=== PATIENT | female | born 1980 | race Caucasian/White ===

== ENCOUNTER 2019-04-28 06:48 | Inpatient (IN) | payer OTHER ==
[~2019-04-28] VITALS: Ht 162.6 cm; Wt 89.1 kg
--- NOTE | ~2019-04-28 | HEMODYNAMI ---
PATIENT:FRANCICSA CHARLES MEDICAL RECORD: [id number] : 84 LOCATION:[facility] D.2115 ADMISSION DATE: 04/28/19 Generatedon:04/29/20199:53 Patient name: FRANCISCA CHARLES Patient #: [id number] SSN: [id number] : 1980 Date of study: 04/29/2019 Page: Of Hemodynamic Procedure Report Patient Data Patient Demographics Procedure consent was obtained First Name: FRANCISCA Gender: Female Last Name: ARACELI : 1980 Patient #: [id number] Age: 38 year(s) Race: SSN: [id number] Additional ID: [id number] Contact details Address: [address] [place] [address] [address] State: [place] City: [facility] Zip code: [address] Past Medical History Allergies: No known allergies Admission Admission Data Admission Date: 04/28/2019 Admission Time: 16:25 Arrival Date: 04/28/2019 Arrival Time: 0:00 Room #: D.2115 Weight (lbs.): 186 Weight (kg.): 84.37 Lab Results Lab Result Date: 04/29/2019 Lab Result Time: 1:00 CBC Name Units Result Min Max Hematocrit % 36.3 *-(----)-- 42 54 Hemoglobin g/dl 11.8 *-(----)-- 13.5 17.5 Procedure Procedure Types Cath Procedure Diagnostic Procedure [facility] w/Coronaries Procedure Description Procedure Date Procedure Date: 04/29/2019 Procedure Start Time: 9:41 Procedure End Time: 9:49 Procedure Staff Name Function Guido Means MD Performing Physician Jaky Obando RT Monitor Janet Javier RT Scrub Lorri Morgan RN Nurse Procedure Data Cath Procedure Fluoroscopy Diagnostic fluoroscopy Total fluoroscopy Time: 2 time: 2 min min Diagnostic fluoroscopy Total fluoroscopy dose: 382 dose: 382 mGy mGy Contrast Material Contrast Material Type Amount (ml) Isovue 300 63 Entry Location Entry Primary Successful Side Size Upsize Upsize Entry Closure Weiss ccessful Closure Location (Fr) 1 (Fr) 2 (Fr) Remarks Device Remarks Radial Right 5 Fr Mechanical artery Compression Estimated blood loss: 5 ml Diagnostic catheters Device Type Used For End Catheter Placement DIAGNOSTIC Everson 110cm 5 Procedure Fr catheter ([id number]) Procedure Complications No complications Procedure Medications Medication Administration Route Dosage Oxygen etCO2 Nasal cannula 2 l/min Lidocaine 2% added to field 20 Heparin Flush Bag added to field 2 bags (1000units/500ml NS) 0.9% NaCl I.V. 100 ml/hr Radial Cocktail I.A. 1 syringe (Verapamil 2mg/Nitro 400mcg/Heparin 1500units) Versed I.V. 2 mg Fentanyl I.V. 100 mcg Versed I.V. 2 mg Fentanyl I.V. 100 mcg Hemodynamics Rest HGB: 11.8 (g/dl) Heart Rate: 57 (bpm) Snapshots Pre Cath Intra NCS Post Cath Vital Signs Time Heart Resp SPO2 etCO2 NIBP Rhythm Pain Sedation Rate (ipm) (%) (mmHg) (mmHg) Status Level (bpm) 9:19:11 67 15 99 39 127/75(91) NSR 0 (11) 10(A) , No pain 9:23:23 58 13 98 42.1 129/67(86) NSR 0 (11) 10(A) , No pain 9:27:39 57 12 98 42.1 116/61(83) NSR 0 (11) 10(A) , No pain 9:31:59 55 11 98 42.8 116/52(85) NSR 0 (11) 10(A) , No pain 9:36:58 53 11 97 40.5 115/62(81) NSR 0 (11) 10(A) , No pain 9:41:14 54 12 97 21.8 110/54(75) NSR 0 (11) 10(A) , No pain 9:45:26 76 13 94 44.3 100/47(74) NSR 0 (11) 9(A) , No pain 9:49:40 70 12 96 47.3 110/52(75) NSR 0 (11) 10(A) , No pain Medications Time Medication Route Dose Verified Delivered Reason Notes Effectiveness by by 9:18:15 Oxygen etCO2 2 l/min Guido Blackmon used for Nasal Tauth MD Morgan school janitor cannula 9:18:22 Lidocaine 2% added 20ml Guido Lora for local to vial Miguelangel Means MD anesthetic field 9:18:30 Heparin Flush added 2 bags Guido Lora used for Bag to Miguelangel Means MD procedure (1000units/500ml field NS) 9:18:42 0.9% NaCl I.V. 100 Guido Blackmon Per ml/hr Miguelangel Morgan RN physician 9:41:47 Versed I.V. 2 mg Guido Blackmon for sedation Miguelangel Morgan RN 9:41:53 Fentanyl I.V. 100 mcg Guido Blackmon for sedation Miguelangel Morgan RN 9:42:36 Radial Cocktail I.A. 1 Guido Lora for (Verapamil syringe Miguelangel Means MD vasodilation 2mg/Nitro 400mcg/Heparin 1500units) 9:45:38 Versed I.V. 2 mg Guido Blackmon for sedation Miguelangel Morgan RN 9:45:42 Fentanyl I.V. 100 mcg Guido Blackmon for sedation Miguelangel Morgan RN Procedure Log Time Note 8:59:22 Informed consent obtained and on chart 8:59:48 Procedure Status Urgent Heart Cath (IP). 8:59:49 Signed procedure consent form obtained from patient. 8:59:51 Time tracking: Regular hours (M-F 7:00 - 5:00) 8:59:54 Plan of Care:Hemodynamics will remain stable., Cardiac rhythm will remain stable., Comfort level will be maintained., Respiratory function will remain adequate., Patient/ family verbilizes understanding of procedure., Procedure tolerated without complication., Recovers from procedure without complications.. 9:00:04 Lorri Morgan RN sent for patient. Start room use. 9:00:47 Patient allergic to No known allergies 9:01:20 Lab Result : BUN 15 mg/dl 9:01:20 Lab Result : Creatinine 0.7 mg/dl 9:01:20 Lab Result : eGFR NONAFRICAN 90 ml/min 9:12:27 Patient received from Med II to CCL 1 Alert and oriented. Tansferred to table in Supine position. 9:12:28 Warm blankets applied, and edilson hugger turned on for patient comfort. 9:12:29 Correct patient and procedure confirmed by team. 9:12:29 ECG and BP/O2 sat monitors applied to patient. 9:18:04 Vital chart was started 9:18:15 Oxygen 2 l/min etCO2 Nasal cannula was administered by Lorri Morgan RN; used for procedure; Verbal order read back and verified. 9:18:22 Lidocaine 2% 20ml vial added to field was administered by Guido Means MD; for local anesthetic; Verbal order read back and verified. 9:18:30 Heparin Flush Bag (1000units/500ml NS) 2 bags added to field was administered by Guido Means MD; used for procedure; Verbal order read back and verified. 9:18:42 0.9% NaCl 100 ml/hr I.V. was administered by Lorri Morgan RN; Per physician; Verbal order read back and verified. 9:20:07 Baseline sample Acquired. 9:20:12 Rhythm: sinus bradycardia 9:20:14 Full Disclosure recording started 9:20:15 Pre-procedure instructions explained to patient. 9:20:16 Pre-op teaching completed and patient verbalized understanding. 9:20:17 Family in patients room. 9:20:19 Patient NPO since Midnight. 9:20:22 Is patient on blood thinner?Yes 9:20:31 PRE LOADED ON PLAVIX. 9:20:33 Patient diabetic? No. 9:20:35 Patient not . Patient has had tubal. 9:20:42 Previous problem with sedation/anesthesia? No ? 9:20:43 Snore? Yes 9:20:44 Sleep apnea? No 9:20:46 Deviated septum? No 9:20:47 Opens mouth fully? Yes 9:20:48 Sticks out tongue? Yes 9:20:50 Airway obstruction? No ? 9:20:51 Dentures? No ? 9:20:55 Modified Randy's test Ulnar < 7 seconds 9:20:57 Patient pain scale 0/10 ?. 9:21:02 IV patent on arrival in right antecubital with 0.9% NaCl at [facility]. 9:21:05 Lab results completed and on chart. 9:21:09 Right Radial & Right Groin area was prepped with chlora-prep and draped in sterile fashion 9:21:10 Alarms reviewed by R. N. 9:21:11 Sharps counted by scrub and verified by R.N. 9:21:16 Use device set Radial Dx or PCI 9:21:17 ACIST Syringe (34129) opened to sterile field. 9:21:18 Bag Decanter (2001S) opened to sterile field. 9:21:18 ACIST Hand Control (79818) opened to sterile field. 9:21:19 ACIST Manifold (27972) opened to sterile field. 9:21:20 Tegaderm 4 x 4 (1626W) opened to sterile field. 9:21:21 Medline Cath Pack ([id number]) opened to sterile field. 9:21:21 MBrace Wrist Support ([id number]) opened to sterile field. 9:21:23 EMERALD Guide Wire (502-506) opened to sterile field. 9:21:24 SHEATH 6FR RAIN (7153617) opened to sterile field. 9:24:04 Patient Weight : 186 lbs 9:24:17 Arrival Date: 04/28/2019 12:00:00 AM 9:25:17 Lab Result : Hemoglobin 11.8 g/dl 9:25:17 Lab Result : Hematocrit 36.3 % 9:30:02 Zero performed for pressure channel P1 9:40:37 --------ALL STOP TIME OUT------ 9:40:37 Final Timeout: patient, procedure, and site verified with staff and physician. All members of the team are in agreement. 9:40:40 Right Radial & Right Groin site verified by team. 9:40:43 Fire Safety Assessment: A--An alcohol-based skin anteseptic being used preoperatively., C--Open oxygen or nitrous oxide is being used., D--An ESU, laser, or fiber-optic light is being used. 9:40:45 Physical assessment completed. ASA score P 2 - A patient with mild systemic disease as per Guido Means MD. 9:40:47 1) 90+ Normal kidney functon but urine findings or structural abnormalities or genetic trait point to kidney disease. 9:40:50 Maximum allowable contrast dose (3.7 X eGFR X 0.75)250 ml. 9:40:53 Sedation plan: IV Moderate Sedation Medication:Versed, Fentanyl 9:41:14 Procedure started. 9:41:47 Versed 2 mg I.V. was administered by Lorri Morgan RN; for sedation; Verbal order read back and verified. 9:41:53 Fentanyl 100 mcg I.V. was administered by Lorri Morgan RN; for sedation; Verbal order read back and verified. 9:41:54 Local anesthetic to right radial artery with Lidocaine 2% by Guido Means MD.INITIAL ACCESS ONLY 9:42:08 A 5 Fr sheath was inserted into the Right Radial artery 9:42:36 Radial Cocktail (Verapamil 2mg/Nitro 400mcg/Heparin 1500units) 1 syringe I.A. was administered by Guido Means MD; for vasodilation; Verbal order read back and verified. 9:42:39 A DIAGNOSTIC Everson 110cm 5 Fr catheter (079122) was advanced over the wire and used for Procedure. 9:43:38 LV gram done using LAY 9::44 Injector settings: Ml/sec: 5, Volume: 15, 9:44:03 EF : 60 % 9:45:38 Versed 2 mg I.V. was administered by Lorri Morgan RN; for sedation; Verbal order read back and verified. 9:45:42 Fentanyl 100 mcg I.V. was administered by Lorri Morgan RN; for sedation; Verbal order read back and verified. 9:46:11 LCA angiography performed. 9:46:12 RCA angiography performed. 9:46:29 Catheter removed. 9:46:37 Procedure ended.(Physican Out) 9:46:47 ZEPHYR REGULAR TR BAND (496157) opened to sterile field. 9:46:54 Fluoroscopy time 02.00 minutes. 9:46:59 Fluoroscopy dose: 382 mGy 9:46:59 Flurop Dose total: 382 9:47:06 Dose Area Product 60033 mGy/cm. 9:47:10 Contrast amount:Isovue 300 63ml. 9:47:14 Maximum allowable dose exceeded? No. 9:48:07 Sheath removed intact; hemostasis achieved with Mechanical Compression to the Right Radial artery. 9:48:12 [place] band inflated with 10cc of air. 9:48:22 Post-procedure physical assessment completed. ASA score P 2 - A patient with mild systemic disease as per Guido Means MD. 9:48:26 Post procedure rhythm: sinus rhythm 9:48:28 Estimated blood loss: 5 ml 9:48:29 Post procedure instruction explained to patient.Patient verbalizes understanding. 9:48:29 Patient needs reinforcement of post procedure teaching. 9:49:03 Procedure and supply charges have been captured, reviewed, submitted and are correct. 9:49:07 Procedure Complication : No complications 9:49:09 Vital chart was stopped 9:49:09 See physician's report for complete and final results. 9:49:14 Report given to [facility]. 9:49:18 Patient transfered to [facility] with Bed. 9:49:19 Procedure ended. 9:49:19 Full Disclosure recording stopped 9:49:24 End room use (Document Last) 9:52:51 End room use (Document Last) 9:53:25 End room use (Document Last) Device Usage Item Name Manufacture Quantity Catalog Hospital Part Current Minima l Lot# / Number Charge Number Stock Stock Serial# Code ACIST Acist 1 33188 [id number] 518997 [id number] 20 Syringe Medical (00571) Systems Inc Bag Microtek 1 2001S 597660 24265 864047 5 Decanter Medical Inc. (2001S) ACIST Hand Acist 1 28022 812278 929260 465319 5 Control Medical (87651) Systems Inc ACIST Acist 1 85409 536416 243725 149363 5 Manifold Medical (09717) Systems Inc Tegaderm 4 3M 1 1626W 762855 881203 558097 5 x 4 (1626W) Medline Medline 1 [id number] 234606 39076 643020 5 Cath Pack (OILP17938) MBrace Advanced 1 140-0250-00 060252 95780 412546 5 Wrist Vascular Support Dynamics (224679076) EMERALD Cardinal 1 502-455 295790 094034 842826 5 Guide Wire Health (502-455) SHEATH 6FR Cardinal [address] 7267[address] 657221 9984329 113[address] [facility] Health (7468335) DIAGNOSTIC Terumo 1 40-5013 818204 048457 420439 5 Everson 110cm 5 Fr catheter (527842) ZEPHYR Cardinal 1 130747 121743 3873533 182194 5 REGULAR TR Health BAND (296050) Signature Audit Concan Stage Time Signature Unsigned Intra-Procedure 04/29/2019 Jaky Obando 9:52:51 AM RT(R) Intra-Procedure 04/29/2019 Lorri Morgan RN 9:53:25 AM Intra-Procedure 04/29/2019 Guido Means 9:53:43 AM [place] [id number] [place] [id number]
[2019-04-28 07:13] LABS: BASOPHILS 0.3 % (0-2); EOSINOPHILS 3.3 % (0-7); HEMATOCRIT 36.3 % (36.0-48.0); HEMOGLOBIN 11.8 g/dL (12-16); LYMPHOCYTES 27.5 % (15-50); MCH 29.5 pg (26.0-34.0); MCHC 32.5 g/dL (31.0-37.0); MCV 90.8 fL (80.0-100.0); MEAN PLATELET VOLUME 8.8 fL (7.4-10.4); MONOCYTES 9.7 % (2-11); NEUTROPHILS 59.2 % (40-80); PLATELET COUNT 266 10x3/uL (130-400); RDW 12.8 % (11.5-14.5); WBC 7.9 10x3/uL (4.8-10.8)
[2019-04-28 07:28] LABS: HCG SERUM NEGATIVE (NEGATIVE)
[2019-04-28 07:29] LABS: ALBUMIN 3.4 g/dL (3.4-5.0); ALKALINE PHOSPHATASE 83 U/L (46-116); ALT (SGPT) 17 U/L (10-68); BILIRUBIN - TOTAL 0.39 mg/dL (0.2-1.3); CALC OSMOLALITY 285 mosm/kg (275-300); CALCIUM 8.2 mg/dL (8.5-10.1); CARBON DIOXIDE 26.1 mmol/L (21.0-32.0); CHLORIDE - SERUM 108 mmol/L (98-107); CREATININE - SERUM 0.7 mg/dL (0.6-1.3); GLUCOSE 98 mg/dL (74-106); PROTEIN - SERUM 6.3 g/dL (6.4-8.2); SODIUM 143 mmol/L (136-145); UREA NITROGEN 15 mg/dL (7-18); eGFR NON AFRICAN AMERICAN > 90 mL/min (90-120)
[2019-04-28 07:45] LABS: CREATINE KINASE 89 UL (21-215)
[2019-04-28 07:52] LABS: TROPONIN-I 0.159 ng/mL (0.000-0.060)
--- NOTE | 2019-04-28 07:52 | NUR ---
0.159 ELEVATED TROPONIN CALLED BY [employer] AT THIS TIME. REPORTED TO DR. MACDONALD.
[2019-04-28 08:05] VITALS: BP 124/61
--- NOTE | 2019-04-28 08:31 | NUR ---
PATIENT AWAKE AND ALERT; DENIES PAIN AT THIS TIME; SPOUSE AT BEDSIDE; UPDATED ON NPO AT THIS TIME, PLAN OF CARE AND DELAYS IN CARE; WILL CONTINUE TO MONTIOR. NO OTHER NEEDS NOTED.
[2019-04-28 08:32] VITALS: BP 100/53
--- NOTE | 2019-04-28 09:15 | NUR ---
PATIENT C/O CHEST PAIN AND IS UPSET AFTER RECEIVING INFORMATION ON HER CONDITION FROM PROVIDER; TALKED TO PATIENT AND SHE CALMED DOWN. REPEATED AN EKG DUE TO CHEST PAIN. AFTER SHE CALMED DOWN AND RELAXED SHE IS NO LONGER C/O OF CP.
[2019-04-28 10:27] VITALS: BP 120/62
--- NOTE | 2019-04-28 10:36 | NUR ---
UNABLE TO TRANSPORT PT TO ROOM AT THIS TIME DUE TO HAVING A ECHOCARDIOGRAM IN HER ROOM AT THIS TIME. WILL TRANSPORT WHEN COMPLETE.
--- NOTE | 2019-04-28 10:53 | NUR ---
PATIENT TRANSPORTED TO ROOM
--- NOTE | 2019-04-28 10:57 | NUR ---
TRANSFER FROM ER BY W/C. FRANKINTED TO ROOM. CALL LIGHT IN REACH. WILL CONT. PLAN OF CARE.
[2019-04-28 11:09] VITALS: BP 100/53; Ht 162.6 cm; Wt 89.1 kg
--- NOTE | 2019-04-28 11:55 | NUR ---
CONSENTS SIGNED FOR [facility]. WILL CONT. PLAN OF CARE.
--- NOTE | 2019-04-28 16:38 | MORECARE ---
CASE MANAGEMENT DISCHARGE SUMMARY PATIENT: FRANCISCA CHARLES UNIT: [id number] ADM DATE: 04/28/19 AGE: 38 : [birth year] SEX: F ROOM/BED: D.8917 AUTHOR: RUBIA,DOC PHYSICIAN: REFERRING PHYSICIAN: PIPPA SOLOMON MD DATE OF SERVICE: 04/28/19 Discharge Plan Patient Name: FRANCISCA CHARLES Facility: [facility]:[place] : 1980 Planned Disposition: Home Anticipated Discharge Date: 04/29/19 Discharge Date: Expected LOS: 1 Initial Reviewer: [email or web address] Initial Review Date: 04/28/2019 Generated: 04/28/19 5:37 pm DCP- Discharge Planning Updated by [email or web address]: Ruth Stephen on 04/28/19 3:[address] DC PLAN: Return home independently with her . ANTICIPATED DC NEEDS: Denied known dc needs. CM met with patient to complete initial dc planning assessment. CM educated patient on the CM role and verbal consent given by patient to complete assessment. CM verified patient's address, phone number, and emergency contact phone numbers. Patient lives at home with her independently. At discharge patient plans to return home and feels this is a safe discharge. CM discussed availability of home health, rehab services, and medical equipment. Patient denied known discharge needs at this time. Patient reports her will transport her home at time of discharge. CM will continue to follow and will assist as needed with dc plans/needs. Ruth Stephen RN, [facility] DCPIA - Discharge Planning Initial Assessment Updated by [email or web address]: Ruth Stephen on 04/28/19 4:30 pm * Is the patient Alert and Oriented? Yes * PCP Dr. Bailey Holm in [place] * Pharmacy [facility] in [facility] * Preadmission Environment Home with Family * ADLs Independent * Equipment None * List name and contact numbers for known caregivers / representatives who currently or will assist patient after discharge: Krzysztof Charles - - [phone] * Verbal permission to speak to the caregivers and representatives has been obtained from the patient. Yes * Community resources currently utilized None * Additional services required to return to the preadmission environment? No * Can the patient safely return to the preadmission environment? Yes * Has this patient been hospitalized within the prior 30 days at any hospital? No Patient Name: FRANCISCA CHARLES Page 43527 at 1638 All edits/amendments must be made on the electronic document DICTATION DATE: 04/28/191636 HEATING AND VENTILATING DRAFTER: ML 04/28/191636 RPT#: [id number] DC DATE: STATUS: ADM IN [facility] [address] [place] [address] END OF REPORT
[2019-04-28 16:45] VITALS: BP 116/61
[2019-04-28 20:00] VITALS: BP 112/58
--- NOTE | 2019-04-28 20:00 | NUR ---
INITIAL ROUNDS AND ASSESSMENT COMPLETED. PT RESTING IN BED. ANXIOUSNESS NOTED ON FACE. REVIEWED PLAN OF CARE AND PATIENT TEACHING ON NPO AFTER MIDNIGHT. ENCOURAGED QUESTIONS/PROVIDED ANSWERS. PT CALMER AFTER INTERACTION.
--- NOTE | 2019-04-28 21:46 | NUR ---
VISITOR AT BEDSIDE. PROVIDED SANDWICH TRAY AND DRINK AT THIS TIME.
[2019-04-29] VITALS: BP 114/64
[2019-04-29 04:30] VITALS: BP 101/41
[2019-04-29 08:08] VITALS: BP 112/65
--- NOTE | 2019-04-29 09:02 | NUR ---
PRE-OP MEDS GIVEN AT THIS TIME. ALSO GAVE AM MEDS WITH A SIP OF WATER. PT TO CURBSTONE SETTER VIA BED, NAD NOTED.
--- NOTE | 2019-04-29 10:15 | NUR ---
RECEIVED PT BACK TO ROOM 2114, PT A LITTLE DROWSY BUT EASILY AROUSES TO VOICE. VITAL SIGNS STABLE, PLACED PT ON FREQUENT VITAL SIGNS. TR BAND NOTED TO RT WRIST, DRESSING WITH SMALL AMOUNT OF BLOOD. PT DENIES ANY NEEDS AT THIS TIME. CALL LIGHT IN REACH, FAMILY AT BEDSIDE, NAD NOTED,W ILL CONTINUE TO MONITOR.
--- NOTE | 2019-04-29 11:25 | NUR ---
NO CHANGES TO RT WRIST FROM PREVIOUS ASSESSMENT. PT RESTING COMFORTABLY IN BED, AT BEDSIDE, NAD NOTED,WILL CONTINUE TO MONITOR.
[2019-04-29 11:47] LABS: CREATINE KINASE 69 UL (21-215); UREA NITROGEN 12 mg/dL (7-18)
[2019-04-29 11:54] VITALS: BP 99/47
--- NOTE | 2019-04-29 14:34 | HP ---
PATIENT: FRANCISCA UMANA MEDICAL RECORD: [id number] ACCOUNT: [id number] LOCATION:[address] : 84 ADMISSION DATE: 04/28/19 PCP: No PCP HISTORY AND PHYSICAL EXAMINATION DIAGNOSES: 1. Non-Q-wave myocardial infarction. 2. Family history of coronary artery disease. HISTORY OF PRESENT ILLNESS: Mrs. Umana has a weak family history of coronary artery disease. Her father had a myocardial infarction a few years ago. She was awoken with chest pain and her enzymes are positive for a non-Q-wave myocardial infarction. She is pain free at this time. She did have over an hour of chest pain. Presented to [facility], was transferred here. Her EKG is with no significant ST-T abnormalities. PHYSICAL EXAMINATION: CONSTITUTIONAL/GENERAL APPEARANCE: Well nourished, well developed, appears stated age. EYES: Lids and conjunctivae noninjected. No discharge. No pallor. ENT: Lips within normal limit. No cyanosis. No pallor. NECK: Carotid arteries, bilateral normal upstroke. No bruits. No thrills. No jugular venous pressure or distention. CERVICAL LYMPH NODES: Nontender. Nonenlarged. THYROID: Not enlarged. No nodules. CARDIOVASCULAR: Precordial exam, nondisplaced. No heaves or pericardial thrills. Rate and rhythm, regular. Heart sounds, normal S1, normal S2. No S3, no gallop, no rub. Systolic murmur, not heard. Diastolic murmur, not heard. RESPIRATORY: Respiratory effort, unlabored. Normal curvature. No thoracic deformity. No chest wall tenderness. Percussion, resonant. Auscultation, clear. No wheezes, no rales, no rhonchi. ABDOMEN: Soft, nondistended, nontender. No abdominal pain, no vomiting and normal appetite. MUSCULOSKELETAL: No joint tenderness, normal gait, normal tone. SKIN: Warm and dry. OVERALL IMPRESSION: Non-Q-wave myocardial infarction. At this time, we will start aspirin and Plavix. She has received 1 dose of Lovenox. She does not need a beta-theo. Her heart rate is in the 50s and 60s. Does not need GILA inhibitor as her systolic blood pressure is in the 100 range. We will get an echocardiogram today. Proceed with coronary angiography in the a.m. TRANSINT:[id number] Voice Confirmation ID: [id number] DOCUMENT ID: [id number] PIPPA SOLOMON MD at 1434 CC: [id number] DICTATION DATE: 04/28/19850 PRINTED CIRCUIT BOARDS LAMINATOR: 04/28/19 09 ADM IN [facility] [address] [place] [address]
--- NOTE | 2019-04-29 14:34 | EC ---
PATIENT:FRANCISCA CHARLES DATE OF SERVICE: 04/28/19 SEX: F MEDICAL RECORD: [id number] DATE OF : [birth year] LOCATION:D. D.211 AGE OF PATIENT: 38 ADMISSION DATE: 04/28/19 REFERRING PHYSICIAN: INTERPRETING PHYSICIAN: PIPPA MEANS MD ECHOCARDIOGRAM REPORT ECHO CHARGES 4 ECHO COMPLETE Date: 04/28/19 CLINICAL DIAGNOSIS: IA ECHOCARDIOGRAPHIC MEASUREMENTS (adult normal given) AC root (d.<3.7cm) 2.5 cm LV Septum d (<1.2 cm> 0.8 cm Valve Excursion 1.9 cm LV Septum (systole) 1.3 cm Left Atria (s.<4.0cm> 3.2 cm LVPW d(<1.2cm) 0.9 cm RV (d.<2.3cm) 2.4 cm LVPW (sytole) 1.0 cm LV diastole(<5.6CM) 5.5 cm MV E-F(>70mm/sec) cm LV systole 4.1 cm LVOT Diameter 1.7 cm MV exc.(>10mm) cm Est.ejection fraction (50-75%) % DOPPLER: LVIT cm/sec A 64 cm/sec E 109 cm/sec LA cm/sec RVSP 16.0 mmHg LVOT 135 cm/sec AOP1/2T m/s Asc. Ao 136 cm/sec RVOT 66 cm/sec RA cm/sec PA 99 cm/sec AV Gradient Peak 7.4 mmHg AV Mean 4.1 mmHg AV Area 2.4 cm MV Gradient Peak 5.4 mmHg MV Mean 1.6 mmHg MV Area cm COMMENTS: Senior Sales Compensation Analyst: Annetta [facility] Motion Picture Film Examiner: 1 Dr. Means TAPE# PACS Pericardial Effusion N DATE OF SERVICE: FINDINGS: 1. Left ventricular chamber size is within normal limits. Left ventricular systolic function is normal. Overall ejection fraction estimated at 55% to 60%. 2. Left atrium, right atrium, and right ventricular chamber sizes are within normal limits. 3. Valvular structures have normal structure and motion. 4. Doppler interrogation reveals trace mitral regurgitation, trace tricuspid regurgitation, no other valvular insufficiency or stenosis. Pulmonary systolic ECHOCARDIOGRAM REPORT [id number] FRANCISCA CHARLES pressure is normal at 16 mmHg. 5. No evidence of pericardial effusion or left ventricular thrombus. TRANSINT:[id number] Voice Confirmation ID: [id number] DOCUMENT ID: [id number] PIPPA MEANS MD at 1434 CC: [id number] DICTATION DATE: 04/29/1953 SEAL MIXING OPERATOR: 04/29/19 1202 ADM IN [facility] [address] [place] [id number]
--- NOTE | 2019-04-29 14:34 | OP ---
PATIENT NAME: FRANCISCA CHARLES MEDICAL RECORD: [id number] :84 LOCATION:D.M2 D.2115 ADMISSION DATE:04/28/19 SURGEON: PIPPA SOLOMON MD DATE OF OPERATION: 04/29/2019 PROCEDURES: 1. Left heart catheterization. 2. Selective coronary angiography. 3. Left ventriculogram. INDICATION: Non-Q-wave myocardial infarction. PROCEDURE IN DETAIL: After informed consent was obtained and after a detailed description of risks, benefits as well as alternative therapies, the patient elected to proceed with angiogram and heart catheterization. The right radial area was prepped and draped in normal sterile fashion. Right radial artery was cannulated via modified Seldinger technique with placement of 5-Scottish sheath. All catheters exchanged through this sheath. FINDINGS: Left ventriculogram was performed in standard 30-degree LAY view, reveals good cardiac wall motion, ejection fraction is 60%. SELECTIVE CORONARY ANGIOGRAPHY: Left main, left anterior descending, left circumflex, right coronary artery are smooth-walled vessels with no angiographic evidence of coronary artery disease. OVERALL IMPRESSION: 1. No angiographic evidence of coronary artery disease. 2. Normal left heart pressures. 3. Normal left ventricular systolic function, increased troponin is not secondary to hemodynamically significant coronary artery disease. We will evaluate for pulmonary embolus. TRANSINT:[id number] Voice Confirmation ID: [id number] DOCUMENT ID: [id number] PIPPA SOLOMON MD at 1434 CC: [id number] DICTATION DATE: 04/29/19 0951 REPAIR TABLE OPERATOR: 04/29/19 1130 ADM IN [place] [id number] [place] [address]
[2019-04-29 16:13] VITALS: BP 99/65
--- NOTE | 2019-04-29 17:23 | NUR ---
ZEPHYR BAND REMOVED AT TIME. APPLIED 2X2 WITH BANDADE. NO BLEEDING OR HEMATOMA NOTED. PT DENIES ANY NEEDS AT THIS TIME. CALL LIGHT IN REACH, NAD NOTED, WILL CONTINUE TO MONITOR.
[2019-04-29 21:08] VITALS: BP 133/53
[2019-04-30 04:13] VITALS: BP 122/51
[2019-04-30 09:12] VITALS: BP 115/59
--- NOTE | 2019-04-30 09:41 | NUR ---
AM MEDS GIVEN AT THIS TIME. PT ASKING WHEN SHE WILL GET TO GO HOME. INFORMED HER THAT DOCTOR HAS TO ROUND FIRST. PT VERBALIZED UNDERSTANDING, DENIES ANY OTHER NEEDSA THIS TIME. CALL LIGHT IN REACH, NAD NOTED, WILL CONTINUE TO MONITOR.
[2019-04-30] MEDS ORDERED: BAYER CHEWABLE81 MG PO (11:06)
--- NOTE | 2019-04-30 11:11 | NUR ---
PATIENT TO REFUSE FLU SHOT WHEN ASKED.
--- NOTE | 2019-04-30 11:32 | NUR ---
PROVIDED VERBAL AND WRITTEN DISCHARGE TEACHING TO PT, WHO VERBALIZED UNDERSTANDING REGARDING TEACHING. D/C RT AC IV WITH CATHETER TIP INTACT. PT READY FOR WHEELCHAIR.
--- NOTE | 2019-04-30 11:36 | NUR ---
PT REFUSED WHEELCHAIR, LEFT UNIT VIA AMBULATORY, WITH ALL BELONGINGS, ACCOMPANIED BY . NAD NOTED.
--- NOTE | 2019-05-01 07:26 | MORECARE ---
CASE MANAGEMENT DISCHARGE SUMMARY PATIENT: FRANCISCA CHARLES UNIT: [id number] ADM DATE: 04/28/19 AGE: 38 : 84 SEX: F ROOM/BED: D.2067 AUTHOR: RUBIA,DOC PHYSICIAN: REFERRING PHYSICIAN: PIPPA SOLOMON MD DATE OF SERVICE: 05/01/19 Discharge Plan Patient Name: FRANCISCA CHARLES Facility: [facility]:[place] : 1980 Planned Disposition: Home Anticipated Discharge Date: 04/30/19 Discharge Date: 04/30/2019 Expected LOS: 2 Initial Reviewer: [email or web address] Initial Review Date: 04/28/2019 Generated: 05/01/19 8:26 am DCP- Discharge Planning Updated by [email or web address]: Ruth Stephen on 04/28/19 3:[address] DC PLAN: Return home independently with her . ANTICIPATED DC NEEDS: Denied known dc needs. CM met with patient to complete initial dc planning assessment. CM educated patient on the CM role and verbal consent given by patient to complete assessment. CM verified patient's address, phone number, and emergency contact phone numbers. Patient lives at home with her independently. At discharge patient plans to return home and feels this is a safe discharge. CM discussed availability of home health, rehab services, and medical equipment. Patient denied known discharge needs at this time. Patient reports her will transport her home at time of discharge. CM will continue to follow and will assist as needed with dc plans/needs. Ruth Stephen RN, [facility] DCPIA - Discharge Planning Initial Assessment Updated by [email or web address]: Ruth Stephen on 04/28/19 4:30 pm * Is the patient Alert and Oriented? Yes * PCP Dr. Bailey Holm in [place] * Pharmacy [facility] in [facility] * Preadmission Environment Home with Family * ADLs Independent * Equipment None * List name and contact numbers for known caregivers / representatives who currently or will assist patient after discharge: Krzysztof Charles - - [phone] * Verbal permission to speak to the caregivers and representatives has been obtained from the patient. Yes * Community resources currently utilized None * Additional services required to return to the preadmission environment? No * Can the patient safely return to the preadmission environment? Yes * Has this patient been hospitalized within the prior 30 days at any hospital? No Last DP export: 04/28/19 3:38 p Patient Name: FRANCISCA CHARLES Page [id number] at 0726 All edits/amendments must be made on the electronic document DICTATION DATE: 05/01/19725 SHOE SHANKER: ML 05/01/19725 RPT#: [id number] DC DATE:04/30/19 STATUS: DIS IN [facility] [address] [place] [address] END OF REPORT
--- NOTE | 2019-05-09 13:30 | DS ---
PATIENT:FRANCISCA UMANA :84 MEDICAL RECORD: [id number] DISCHARGE SUMMARY ADMISSION DATE: 04/28/19 DISCHARGE DATE: 04/30/19 DIAGNOSES: 1. Increased troponin. 2. Chest pain. HISTORY AND HOSPITAL COURSE: Ms. Umana presents with chest pain and her troponin was increased; however, cardiac catheterization was normal with smooth-walled vessels and normal LV function. CT angio was normal and no evidence of pulmonary embolus. She had no further chest pain. Unknown etiology of the chest pain. Doubt that this was actual myocardial infarction with smooth-walled coronary vessels. I have asked her to take an aspirin 81 mg every day. We would be happy to follow up if she has any recurrent chest pain. TRANSINT:[id number] Voice Confirmation ID: [id number] DOCUMENT ID: [id number] PIPPA SOLOMON MD at 1330 CC: [id number] DICTATION DATE: 04/30/19 1107 COMPOUND WORKER: 05/01/19 0710 DIS IN 04/30/19 [address] [place] [address]
== END 2019-04-30 11:47 | disposition home or self-care (01) | DRG 287 ==
LOC: D.M2 06:48 → D.ER 06:48 → D.OPS 06:48 → D.M2 09:08 → EDSTATUS 10:05 → D.OPS 16:24 → D.M2 16:25
PROVIDERS: Family Medicine; ADMIT Internal Medicine Interventional Cardiology; ATTEND Internal Medicine Interventional Cardiology
PROC: B2151ZZ Fluoroscopy of Left Heart using Low Osmolar Contrast (ICD-10-PCS; 2019-04-29)
PROC: 4A023N7 Measurement of Cardiac Sampling and Pressure, Left Heart, Percutaneous Approach (ICD-10-PCS; 2019-04-29)
PROC: B2111ZZ Fluoroscopy of Multiple Coronary Arteries using Low Osmolar Contrast (ICD-10-PCS; principal; 2019-04-29 09:00)
DX: R07.89 Other chest pain (principal); R79.89 Other specified abnormal findings of blood chemistry